=== PATIENT | male | born 1990 | race Caucasian/White ===

== ENCOUNTER 2018-01-08 12:39 | Emergency (ER) | payer BC ==
[2018-01-08 13:29] VITALS: BP 141/91; PULSE 75; RESP 18; TEMP 98.3
[2018-01-08] MEDS ORDERED: TOPICAL SKIN ADHESIVE 1 EACH AMP TOPICAL ONE (13:49)
[2018-01-08] MEDS ORDERED: DIPH,PERTUS(ACELL)TETVAC-LF 0.5 ML VIAL IM ONE (13:49)
--- NOTE | 2018-01-08 14:26 | ED ---
General Adult HPI - General Chief complaint: Wound/Laceration Stated complaint: Chin Laceration Time Seen by Provider: 01/08/18 13:38 Source: patient, RN notes reviewed Mode of arrival: ambulatory Limitations: no limitations - History of Present Illness Initial comments: Patient's 27-year-old male presented to the emergency room today with a chief complaint of a laceration to the left side of his chin. Patient states he was using a drill when it slipped causing it to hit his chin causing this laceration. States it is from his tooth as it as a cut on the inside. He states is unsure of his tetanus. He denies any other complaints. States all his teeth are stable and not loose. - Related Data Previous Rx's Medication Instructions Recorded Cephalexin [Keflex] 500 mg PO Q12HR 7 Days cap 01/08/18 Allergies Allergy/AdvReac Type Severity Reaction Status Date / Time No Known Allergies Allergy Verified 01/08/18 13:29 Review of Systems ROS Statement: Those systems with pertinent positive or pertinent negative responses have been documented in the HPI. ROS Other: All systems not noted in ROS Statement are negative. Past Medical History Past Medical History: No Reported History History of Any Multi-Drug Resistant Organisms: None Reported Past Surgical History: No Surgical Hx Reported Past Psychological History: No Psychological Hx Reported Smoking Status: Never smoker Past Alcohol Use History: None Reported Past Drug Use History: Marijuana General Exam - General Exam Comments Initial Comments: General: The patient is awake and alert, in no distress, and does not appear acutely ill. Eye: Pupils are equal, round and reactive to light, extra-ocular movements are intact. No nystagmus. There is normal conjunctiva bilaterally. No signs of icterus. Ears, nose, mouth and throat: There are moist mucous membranes and no oral lesions. Neck: The neck is supple, there is no tenderness or JVD. Musculoskeletal: Normal ROM, no tenderness. Strength 5/5. Sensation intact. Pulses equal bilaterally 2+. Neurological: A&O x 3. CN II-XII intact, There are no obvious motor or sensory deficits. Coordination appears grossly intact. Speech is normal. Skin: 1 cm linear laceration running horizontally just below the left side of the lower lip. There is a laceration inside her mouth there is no active bleeding. Psychiatric: Cooperative, appropriate mood & affect, normal judgment. Limitations: no limitations Course Vital Signs 01/08/18 13:26 Temperature 98.3 F Pulse Rate 75 Respiratory 18 Rate Blood Pressure 141/91 O2 Sat by Pulse 100 Oximetry Procedures - Procedures Initial comment: Please allow to fall off on its own over the next 3-5 days. Please watch for any signs of infection which may include increased pain, swelling, redness or swelling. Disposition Clinical Impression: Laceration Disposition: HOME SELF-CARE Condition: Good Instructions: Laceration (ED) Additional Instructions: Please allow to fall off on its own over the next 3-5 days. Please watch for signs of infection as discussed. Prescriptions: Cephalexin [Keflex] 500 mg PO Q12HR 7 Days cap Is patient prescribed a controlled substance at d/c from ED?: No Referrals: None,Stated [Primary Care Provider] - 1-2 days Time of Disposition: 14:26
== END 2018-01-08 14:33 | disposition home or self-care (01) ==
LOC: EC 12:39
DX: S01.81XA Laceration without foreign body of other part of head, initial encounter (principal); S01.512A Laceration without foreign body of oral cavity, initial encounter; Z23 Encounter for immunization; W29.8XXA Contact with other powered hand tools and household machinery, initial encounter; Y92.009 Unspecified place in unspecified non-institutional (private) residence as the place of occurrence of the external cause; Y93.89 Activity, other specified
CPT/HCPCS: 90471; 90715; 99282

== ENCOUNTER 2020-11-02 11:45 | Inpatient (IN) | payer BC, OTHER ==
[2020-11-02] MEDS ORDERED: SODIUM CHLORIDE 0.9% 1,000 ML IV STA (12:24)
[2020-11-02 12:49] LABS: Basophils % (A) 0 %; Eosinophils # (A) 0.1 k/uL (0-0.7); Eosinophils % (A) 1 %; HCT 20.5 % (39.0-53.0); Hypochromasia Marked; Lymphocytes # (A) 0.8 k/uL (1.0-4.8); Lymphocytes % (A) 8 %; MCH 17.4 pg (25.0-35.0); MCHC 28.3 g/dL (31.0-37.0); MCV 61.3 fL (80.0-100.0); Mean Platelet Volume 7.9; Microcytosis Marked; Monocytes # (A) 0.5 k/uL (0-1.0); Monocytes % (A) 5 %; Neutrophils # (A) 7.5 k/uL (1.3-7.7); Neutrophils % (A) 84 %; Platelet Count 423 k/uL (150-450); Poikilocytosis Slight; RBC 3.35 m/uL (4.30-5.90); RDW 14.9 % (11.5-15.5); WBC 8.9 k/uL (3.8-10.6)
[2020-11-02 13:00] LABS: HGB 5.8 gm/dL (13.0-17.5)
[2020-11-02 13:01] LABS: ALT 12 U/L (4-49); AST 24 U/L (17-59); African American GFR (CKD) >90 (>60 ml/min/1.73 sqM); Albumin 4.7 g/dL (3.5-5.0); Alkaline Phosphatase 32 U/L (38-126); Anion Gap 5 mmol/L; Blood Urea Nitrogen 20 mg/dL (9-20); Calcium 9.4 mg/dL (8.4-10.2); Carbon Dioxide 30 mmol/L (22-30); Chloride 104 mmol/L (98-107); Glucose 96 mg/dL (74-99); Non-African American GFR(CKD) 89 (>60 ml/min/1.73 sqM); Potassium 4.2 mmol/L (3.5-5.1); Sodium 139 mmol/L (137-145); Total Bilirubin 0.5 mg/dL (0.2-1.3); Total Protein 7.2 g/dL (6.3-8.2)
[2020-11-02 13:19] LABS: Prothrombin Time 10.7 sec (9.0-12.0)
[2020-11-02 13:27] LABS: Partial Thromboplastin Time 17.9 sec (22.0-30.0)
--- NOTE | 2020-11-02 13:50 | ED ---
General Adult HPI - General Chief complaint: Syncope Stated complaint: Syncope Time Seen by Provider: 11/02/20 12:24 Source: patient Mode of arrival: ambulatory Limitations: no limitations - History of Present Illness Initial comments: 30-year-old male presents emergency Department a chief complain of passing out. Patient reports she has been experiencing intermittent amounts of hematochezia over the last year but has never been evaluated for it. Reports over the last month particularly as developed generalized fatigue. States today he went to [facility] on the bed and passed out for unknown period of time. He does report feeling slightly lightheaded but denies any dizziness. He denies any chest pain or shortness of breath visual changes one-sided weakness or paresthesias. - Related Data Previous Rx's Medication Instructions Recorded Cephalexin [Keflex] 500 mg PO Q12HR 7 Days cap 01/08/18 Allergies Allergy/AdvReac Type Severity Reaction Status Date / Time No Known Allergies Allergy Verified 11/02/20 12:21 Review of Systems ROS Statement: Those systems with pertinent positive or pertinent negative responses have been documented in the HPI. ROS Other: All systems not noted in ROS Statement are negative. Past Medical History Past Medical History: No Reported History Additional Past Medical History / Comment(s): blood in stool. History of Any Multi-Drug Resistant Organisms: None Reported Past Surgical History: No Surgical Hx Reported Past Psychological History: No Psychological Hx Reported Smoking Status: Never smoker Past Alcohol Use History: None Reported Past Drug Use History: Marijuana General Exam Limitations: no limitations General appearance: alert, in no apparent distress Head exam: Present: atraumatic, normocephalic, normal inspection Eye exam: Present: normal appearance, PERRL, EOMI. Absent: conjunctival injection (Pale Conjunctiva bilaterally) Pupils: Present: normal accommodation ENT exam: Present: normal exam, normal oropharynx, mucous membranes moist, TM's normal bilaterally, normal external ear exam Neck exam: Present: normal inspection, full ROM. Absent: tenderness Respiratory exam: Present: normal lung sounds bilaterally. Absent: respiratory distress, wheezes, rales, rhonchi, stridor, chest wall tenderness, accessory muscle use Cardiovascular Exam: Present: regular rate, normal rhythm, normal heart sounds. Absent: systolic murmur Rectal exam: Present: normal rectal tone, hemorrhoids (External hemorrhoids) Extremities exam: Present: normal inspection, full ROM, normal capillary refill. Absent: tenderness, pedal edema, joint swelling Back exam: Present: normal inspection, full ROM. Absent: tenderness, CVA te nderness (R), CVA tenderness (L) Neurological exam: Present: alert, oriented X3 Psychiatric exam: Present: normal affect, normal mood Skin exam: Present: warm, dry, intact, normal color Course Vital Signs 11/02/20 12:18 Temperature 98.1 F Pulse Rate 92 Respiratory 18 Rate Blood Pressure 115/73 O2 Sat by Pulse 100 Oximetry EKG Findings - EKG Comments: EKG Findings:: Sinus rhythm. Trachea rate 87, FL 170, QRS 72, QTC 406. Medical Decision Making - Medical Decision Making 30-year-old male presents emergency Department a chief complain of passing out. Physical examination reveals pale conjunctiva bilaterally. exam revealed an external hemorrhoid. Patient is a hemoglobin of 5.8. I ordered 1 unit of blood. I spoke to who will admit. Case discussed with Dr. Phillip JEFFERS on consult - Lab Data Result diagrams: 11/02/20 12:40 11/02/20 12:40 Lab Results 11/02/20 11/02/20 11/02/20 Range/Units 12:40 12:40 12:40 WBC 8.9 (3.8-10.6) k/uL RBC 3.35 L (4.30-5.90) m/uL Hgb 5.8 L* (13.0-17.5) gm/dL Hct 20.5 L (39.0-53.0) % MCV 61.3 L (80.0-100.0) fL MCH 17.4 L (25.0-35.0) pg MCHC 28.3 L (31.0-37.0) g/dL RDW 14.9 (11.5-15.5) % Plt Count 423 (150-450) k/uL MPV 7.9 Neutrophils % 84 % Lymphocytes % 8 % Monocytes % 5 % Eosinophils % 1 % Basophils % 0 % Neutrophils # 7.5 (1.3-7.7) k/uL Lymphocytes # 0.8 L (1.0-4.8) k/uL Monocytes # 0.5 (0-1.0) k/uL Eosinophils # 0.1 (0-0.7) k/uL Basophils # 0.0 (0-0.2) k/uL Hypochromasia Marked Poikilocytosis Slight Microcytosis Marked PT 10.7 (9.0-12.0) sec INR 1.0 (<1.2) APTT 17.9 L (22.0-30.0) sec Sodium 139 (137-145) mmol/L Potassium 4.2 (3.5-5.1) mmol/L Chloride 104 (98-107) mmol/L Carbon Dioxide 30 (22-30) mmol/L Anion Gap 5 mmol/L BUN 20 (9-20) mg/dL Creatinine 1.10 (0.66-1.25) mg/dL Est GFR (CKD-EPI)AfAm >90 (>60 ml/min/1.73 sqM) Est GFR (CKD-EPI)NonAf 89 (>60 ml/min/1.73 sqM) Glucose 96 (74-99) mg/dL Calcium 9.4 (8.4-10.2) mg/dL Total Bilirubin 0.5 (0.2-1.3) mg/dL AST 24 (17-59) U/L ALT 12 (4-49) U/L Alkaline Phosphatase 32 L (38-126) U/L Total Protein 7.2 (6.3-8.2) g/dL Albumin 4.7 (3.5-5.0) g/dL Stool Occult Blood (Negative) Blood Type Recheck Bld Type Recheck Status Spec Expiration Date 11/02/20 11/02/20 Range/Units 13:15 13:20 WBC (3.8-10.6) k/uL RBC (4.30-5.90) m/uL Hgb (13.0-17.5) gm/dL Hct (39.0-53.0) % MCV (80.0-100.0) fL MCH (25.0-35.0) pg MCHC (31.0-37.0) g/dL RDW (11.5-15.5) % Plt Count (150-450) k/uL MPV Neutrophils % % Lymphocytes % % Monocytes % % Eosinophils % % Basophils % % Neutrophils # (1.3-7.7) k/uL Lymphocytes # (1.0-4.8) k/uL Monocytes # (0-1.0) k/uL Eosinophils # (0-0.7) k/uL Basophils # (0-0.2) k/uL Hypochromasia Poikilocytosis Microcytosis PT (9.0-12.0) sec INR (<1.2) APTT (22.0-30.0) sec Sodium (137-145) mmol/L Potassium (3.5-5.1) mmol/L Chloride (98-107) mmol/L Carbon Dioxide (22-30) mmol/L Anion Gap mmol/L BUN (9-20) mg/dL Creatinine (0.66-1.25) mg/dL Est GFR (CKD-EPI)AfAm (>60 ml/min/1.73 sqM) Est GFR (CKD-EPI)NonAf (>60 ml/min/1.73 sqM) Glucose (74-99) mg/dL Calcium (8.4-10.2) mg/dL Total Bilirubin (0.2-1.3) mg/dL AST (17-59) U/L ALT (4-49) U/L Alkaline Phosphatase (38-126) U/L Total Protein (6.3-8.2) g/dL Albumin (3.5-5.0) g/dL Stool Occult Blood Negative (Negative) Blood Type Recheck No Previous Record Bld Type Recheck Status CABO Indicated Spec Expiration Date 11/05/20202319 Disposition Clinical Impression: Symptomatic anemia, GI bleed Disposition: ADMITTED IP TO THIS [facility] Condition: Fair Is patient prescribed a controlled substance at d/c from ED?: No Referrals: Coleman Yarbrough DO [Primary Care Provider] - 1-2 days Time of Disposition: 14:08
[2020-11-02] MEDS ORDERED: NALOXONE 0.4 MG/ML 1 ML VIAL IV PRN (14:08)
[2020-11-02] MEDS ORDERED: ONDANSETRON 4 MG/2 ML VIAL IVP PRN (14:08)
[2020-11-02] MEDS ORDERED: PEG 3350-NA SULF,BICARB,CL/KCL 4,000 ML BOTTLE PO ONE (15:00)
--- NOTE | 2020-11-02 16:28 | P.HPIM ---
History of Present Illness Patient is a pleasant 30-year-old male came in with complaints of syncope. She is found to have a significantly low hemoglobin of 5.8. Patient was having a lower GI bleed and is found to have hemorrhoids. Patient has on of blood in the stools for about a year. Patient was having blood in the stools for last couple days although he is having 1 or 2 bowel movements a day. Patient denied any abdominal pain or nausea vomiting. Did discuss with development scientist and the patient will be started on bowel prep for colonoscopy tomorrow. Review of Systems REVIEW OF SYSTEMS: CONSTITUTIONAL: No fever, no malaise, no fatigue. HEENT: No recent visual problems or hearing problems. Denied any sore throat. CARDIOVASCULAR: No chest pain, orthopnea, PND, no palpitations. PULMONARY: No shortness of breath, no cough, no hemoptysis. GASTROINTESTINAL: As mentioned in HPI NEUROLOGICAL: No headaches, no weakness, no numbness. HEMATOLOGICAL: Denies any bleeding or petechiae. GENITOURINARY: Denies any burning micturition, frequency, or urgency. MUSCULOSKELETAL/RHEUMATOLOGICAL: Denies any joint pain, swelling, or any muscle pain. ENDOCRINE: Denies any polyuria or polydipsia. The rest of the 14-point review of systems is negative. Past Medical History Past Medical History: No Reported History Additional Past Medical History / Comment(s): blood in stool. History of Any Multi-Drug Resistant Organisms: None Reported Past Surgical History: No Surgical Hx Reported Past Psychological History: No Psychological Hx Reported Smoking Status: Never smoker Past Alcohol Use History: None Reported Past Drug Use History: Marijuana Medications and Allergies Home Medications Medication Instructions Recorded Confirmed Type No Known Home Medications 11/02/20 11/02/20 History Allergies Allergy/AdvReac Type Severity Reaction Status Date / Time No Known Allergies Allergy Verified 11/02/20 14:27 Physical Exam Vitals: Vital Signs Temp Pulse Resp BP Pulse Ox 11/02/20 15:08 84 18 120/58 100 11/02/20 15:03 98.2 F 93 18 114/54 100 11/02/20 14:34 98 18 114/54 99 11/02/20 12:18 98.1 F 92 18 115/73 100 Intake and Output 11/02/20 11/02/20 11/02/20 06:59 14:59 22:59 Intake Total 0 Balance 0 Intake: Blood Product 0 Rc As-1 Unit 0 [id number] Other: Weight 81.647 kg PHYSICAL EXAMINATION: GENERAL: The patient is alert and oriented x3, not in any acute distress. Well developed, well nourished. HEENT: Pupils are round and equally reacting to light. EOMI. No scleral icterus. Does have conjunctival pallor. Normocephalic, atraumatic. No pharyngeal erythema. No thyromegaly. CARDIOVASCULAR: S1 and S2 present. No murmurs, rubs, or gallops. PULMONARY: Chest is clear to auscultation, no wheezing or crackles. ABDOMEN: Soft, nontender, nondistended, normoactive bowel sounds. No palpable organomegaly. MUSCULOSKELETAL: No joint swelling or deformity. EXTREMITIES: No cyanosis, clubbing, or pedal edema. NEUROLOGICAL: Gross neurological examination did not reveal any focal deficits. SKIN: No rashes. Results CBC & Chem 7: 11/02/20 12:40 11/02/20 12:40 Labs: Abnormal Lab Results - Last 24 Hours (Table) 11/02/20 11/02/20 11/02/20 Range/Units 12:40 12:40 12:40 RBC 3.35 L (4.30-5.90) m/uL Hgb 5.8 L* (13.0-17.5) gm/dL Hct 20.5 L (39.0-53.0) % MCV 61.3 L (80.0-100.0) fL MCH 17.4 L (25.0-35.0) pg MCHC 28.3 L (31.0-37.0) g/dL Lymphocytes # 0.8 L (1.0-4.8) k/uL APTT 17.9 L (22.0-30.0) sec Alkaline Phosphatase 32 L (38-126) U/L Crossmatch 11/02/20 Range/Units 13:20 RBC (4.30-5.90) m/uL Hgb (13.0-17.5) gm/dL Hct (39.0-53.0) % MCV (80.0-100.0) fL MCH (25.0-35.0) pg MCHC (31.0-37.0) g/dL Lymphocytes # (1.0-4.8) k/uL APTT (22.0-30.0) sec Alkaline Phosphatase (38-126) U/L Crossmatch See Detail Assessment and Plan Plan: -Acute on chronic anemia: Secondary to acute on chronic lower GI bleed probably hemorrhoidal bleed. Discussed with gastroneurology patient will undergo colonoscopy tomorrow patient will be started on bowel prep,clear liquids. -Severe anemia patient appears to have chronic anemia from chronic GI bleed as well as a competent of acute anemia as well. Patient has very low MCV. We will obtain iron panel, will need IV iron transfusion. -Syncope: Secondary to severe anemia along with acute lower GI bleed. -DVT prophylaxis early ambulation -Mild acute renal failure secondary to GI bleed
[2020-11-02 23:02] LABS: % Iron Saturation 2.71 (15.00-50.00)
[2020-11-03 07:34] LABS: Anisocytosis Slight; HCT 25.5 % (39.0-53.0); Hypochromasia Marked; MCH 19.2 pg (25.0-35.0); MCHC 28.6 g/dL (31.0-37.0); Mean Platelet Volume 6.7; Microcytosis Marked; Platelet Count 400 k/uL (150-450); Poikilocytosis Marked; RDW 19.9 % (11.5-15.5); WBC 5.8 k/uL (3.8-10.6)
[2020-11-03 07:40] LABS: HGB 7.3 gm/dL (13.0-17.5)
[2020-11-03 11:38] LABS: African American GFR (CKD) 130.5 (60.0-200.0); Anion Gap 6.8 mmol/L (4.00-12.00); BUN/Creat Ratio 15.56 Ratio (12.00-20.00); Calcium 9.1 mg/dL (8.7-10.3); Carbon Dioxide 26.2 mmol/L (21.6-31.8); Non-African American GFR(CKD) 112.6 (60.0-200.0); Potassium 4.4 mmol/L (3.5-5.5)
[2020-11-03] MEDS ORDERED: PROPOFOL 10 MG/ML 20 ML VIAL IV ONE (14:48)
[2020-11-03] MEDS ORDERED: MIDAZOLAM 2 MG/2 ML VIAL ONE (14:48)
[2020-11-03] MEDS ORDERED: fentaNYL (PF) 50 MCG/ML 2 ML AMP ONE (14:48)
[2020-11-03] MEDS ORDERED: SODIUM CHLORIDE 0.9% 500 ML 500 ML IV ONE ×2 (14:52)
--- NOTE | 2020-11-03 15:19 | P.PCN ---
Date of Procedure: 11/03/20 Procedure(s) Performed: Brief history: Patient is a pleasant 31-year-old white male admitted hospital with intermittent rectal bleeding and severe microcytic hypochromic anemia and iron deficiency consistent with iron deficiency anemia and hemoglobin of 5.9 requiring 2 units of PRBC transition. He scheduled scheduled for an elective upper endoscopy as well as colonoscopy.b Procedure performed: Esophagogastroduodenoscopy with biopsy Colonoscopy Preoperative diagnosis: Severe symptomatic iron deficiency anemia with a hemoglobin of 5.5 g/dL Intermittent rectal bleeding Anesthesia: MAC Procedure: After informed consent was obtained from the patient was brought into the endoscopy unit and IV sedation was administered by anesthesia under continuous monitoring. . Initial digital rectal examination was normal. Olympus CF 160 video colonoscope was then inserted into the rectum and gradually advanced to the cecum without any difficulty. Careful examination was performed as the scope was gradually being withdrawn. The prep was excellent. Terminal ileum was intubated and 20 cm visualized and appeared normal. The cecum, ascending colon, transverse colon, descending colon, sigmoid colon and rectum appeared normal. Retroflexion was performed in the rectum and grade 2 internal hemorr hoids were noted. Patient tolerated the procedure well. He continued to remain sedated. At this time consent was obtained from the patient's . The Olympus GF 160 video endoscope was inserted inserted into the mouth and esophagus intubated without any difficulty and was gradually advanced into the stomach and duodenum and carefully examined. The bulb and second part of the duodenum appeared normal. Biopsies were done from the duodenum to rule out celiac disease. The scope was then withdrawn into the stomach adequately insufflated with air and upon careful examination the antrum had mild gastritis and biopsies were done from this area. The body, cardia and fundus appeared normal. The scope was then withdrawn into the esophagus. The GE junction was located at 40 cm to the incisors. It appeared regular with no erythema erosions or ulcerations. Rest of the esophagus appeared normal. Patient tolerated the procedure well. Impression: 1. Colonoscopy revealed grade 2 internal hemorrhoids but no evidence of colitis or colorectal neoplasia 2.. Upper Endoscopy revealed minimal antral gastritis Recommendations: Findings of this examination were discussed with the patient as well as his family. He was advised to follow with the biopsy results. Start him on iron supplements twice daily. He'll be seen in office in 2 weeks.
[2020-11-03 19:52] VITALS: BP 109/66; PULSE 87; RESP 16; TEMP 98.4
--- NOTE | 2020-11-03 22:45 | P.DS ---
Providers Date of admission: 11/02/20 13:59 Expected date of discharge: 11/03/20 Attending physician: Coleman Yarbrough Consults: 11/02/20 14:09 Consult Physician Routine Consulting Provider: Vida Jimenez Consult Reason/Comments: GI bleed, symptomatically anemia Do you want consulting provider notified?: Yes Primary care physician: Coleman Yarbrough - Discharge Diagnosis(es) (1) GI bleed Status: Acute (2) Symptomatic anemia Status: Acute (3) Internal hemorrhoids with complication Status: Acute Hospital Course: Patient was admitted with acute gastrointestinal bleeding and symptomatic anemia he underwent a colonoscopy which showed internal hemorrhoids as well as for follow-up Patient Condition at Discharge: Fair Plan - Discharge Summary New Discharge Prescriptions: New Ferrous Sulfate [Feosol] 325 mg PO BID #0 tab Discharge Medication List Ferrous Sulfate [Feosol] 325 mg PO BID #0 tab 11/03/20 [Rx] Follow up Appointment(s)/Referral(s): Vida Jimenez MD [STAFF PHYSICIAN] - 2 Weeks Coleman Yarbrough DO [Primary Care Provider] - 1 Week Patient Instructions/Handouts: Gastrointestinal Bleeding (DC), Gastrointestinal Bleeding (GEN) Discharge Disposition: HOME SELF-CARE
--- NOTE | 2020-11-03 23:35 | CONS ---
CONSULTATION DATE OF SERVICE: November 03, 2020. REASON FOR CONSULTATION: Severe symptomatic anemia and rectal bleeding. HISTORY OF PRESENT ILLNESS: The patient is a 30-year-old pleasant white male admitted to the hospital with intermittent rectal bleeding for the last one year duration. He came to the emergency room because he was feeling weak and tired and has episodes of dizziness. In the ER, he was noted to have a hemoglobin of 5.9, requiring 2 units of PRBC transfusion. He has been having 1 or 2 bowel movements daily. He bleeds once or twice a week. He denies any abdominal pain. No nausea, no vomiting. No family history of colorectal neoplasia. PAST MEDICAL HISTORY: Unremarkable. PAST SURGICAL HISTORY: Unremarkable. MEDICATIONS: Medications at home none. ALLERGIES: No known drug allergies. SOCIAL HISTORY: No smoking. No alcohol use. FAMILY HISTORY: Unremarkable. REVIEW OF SYSTEMS: CARDIOPULMONARY: No chest pain or shortness of breath. no dysuria or hematuria. MUSCULOSKELETAL unremarkable. ENDOCRINE unremarkable. PSYCHIATRIC: Unremarkable. NEUROLOGICAL: Unremarkable. ENT/VISION: Unremarkable. CONSTITUTIONAL: No recent weight loss. No fever, chills, night sweats. PHYSICAL EXAMINATION: He appears comfortable. No apparent distress. VITAL SIGNS: Stable. Blood pressure is 132/86, pulse rate 82 per minute and afebrile. HEENT examination: Unremarkable. Conjunctivae pink. Sclerae anicteric. Oral cavity no lesions. NECK: No JVD or lymph node enlargement. CHEST: Clear to auscultation. HEART: Regular rate and rhythm. ABDOMEN: Soft. Bowel sounds are positive. No organomegaly. EXTREMITIES: No pedal edema. NEUROLOGIC: Alert and oriented x3. No focal deficits. LABS: WBC 8.9, hemoglobin 5.8, MCV 61, platelets normal. INR is normal, iron 13, TIBC 479, iron saturation 2.7. Occult blood is negative. Repeat hemoglobin 7.3. IMPRESSION: Severe symptomatic microcytic hypochromic anemia in this patient who has intermittent rectal bleeding for the last one year duration. At this time, possibility of internal hemorrhoids needs to be considered but other upper GI pathology also needs to be considered. RECOMMENDATIONS: We will proceed with EGD and colonoscopy tomorrow. Discussed with the patient as well as his risks, benefits and complications and he is agreeable to it. In the meantime, I agree with PRBC transfusion. Start him on iron supplements and we will follow with you closely. Thank you for this consultation. MMODL / IJN: [id number] /
== END 2020-11-03 22:03 | disposition home or self-care (01) | DRG 394 ==
LOC: EC 11:45 → 5NMEDONC 13:59
PROVIDERS: ADMIT Family Medicine; ATTEND Family Medicine
PROC: 0DJD8ZZ Inspection of Lower Intestinal Tract, Via Natural or Artificial Opening Endoscopic (ICD-10-PCS; 2020-11-03)
PROC: 0DB98ZX Excision of Duodenum, Via Natural or Artificial Opening Endoscopic, Diagnostic (ICD-10-PCS; principal; 2020-11-03 08:50)
PROC: 0DB68ZX Excision of Stomach, Via Natural or Artificial Opening Endoscopic, Diagnostic (ICD-10-PCS; 2020-11-03 08:50)
DX: K64.1 Second degree hemorrhoids (principal); D62 Acute posthemorrhagic anemia; N17.9 Acute kidney failure, unspecified; K29.70 Gastritis, unspecified, without bleeding; K64.4 Residual hemorrhoidal skin tags
CPT/HCPCS: 36415; 43239; 45378; 80048; 80053; 82272; 83540; 83550; 84484; 85025; 85027; 85610; 85730; 86850; 86900; 86901; 86920; 88305; 88342; 93005; 96360; 99285